=== PATIENT | female | born 1970 | race African-American/Black ===

== ENCOUNTER 2017-12-11 12:06 | Emergency (ER) | payer OTHER, SELFPAY ==
[2017-12-11 12:34] LABS: Bilirubin Negative (Negative); Blood, Urine Trace (Negative); Clarity CLOUDY (Clear); Glucose, Urine (Dipstick) Negative (Negative); Leukocyte Large (Negative); Nitrite Negative (Negative); Protein, Urine (Dipstick) Negative (Neg-Trace); Specific Gravity, Urine 1.008 (1.002-1.036); pH, Urine 7.5 (5.0-9.0)
[2017-12-11 12:39] LABS: Pregnancy Test - Urine (BHCG) Negative (Negative); Pregu Control Background? CLEAR/WHITE (CLR/WHITE); Pregu Control Bar Appear? YES (CONTROL BAR); Specific Gravity 1.008 (1.002-1.036)
[2017-12-11 12:40] LABS: Bacteria/HPF Rare-Few HPF (None Seen); Hyaline Casts/LPF 0-3 HYALINE CAST LPF (0-3 Hyaline); Pathc Cast-AUWi Flag 0.14 (0-2.49); RBC/HPF 0-3 HPF (0-3); WBC/HPF 21-50 HPF (0-3)
[2017-12-12 22:51] LABS: Chlamydia by PCR Not Detected (NotDetected); GC by PCR Not Detected (NotDetected)
== END 2017-12-11 13:30 | disposition home or self-care (01) ==
LOC: ERS 12:06
DX: N89.8 Other specified noninflammatory disorders of vagina (principal); F17.210 Nicotine dependence, cigarettes, uncomplicated
CPT/HCPCS: 81003; 81015; 81025; 87086; 87480; 87491; 87510; 87591; 87660; 99283

== ENCOUNTER 2017-12-13 04:26 | Emergency (ER) | payer SELFPAY ==
[2017-12-13] MEDS ORDERED: Ketorolac Tromethamine 60 MG/2 ML VIAL ONE (06:01)
[2017-12-13] MEDS ORDERED: Fluconazole 100 MG TAB PO SCH (06:15)
== END 2017-12-13 06:28 | disposition home or self-care (01) ==
LOC: ERS 04:26
DX: N76.0 Acute vaginitis (principal); F17.210 Nicotine dependence, cigarettes, uncomplicated
CPT/HCPCS: 96372; J1885

== ENCOUNTER 2018-09-12 18:15 | Emergency (ER) | payer SELFPAY ==
--- NOTE | 2018-09-12 19:39 | RAD ---
CHEST TWO VIEW: 09/12/18 HISTORY: Cough. COMPARISON: Chest radiograph 12/08/14. FINDINGS: The lungs are clear. No pneumothorax or effusion. The cardiac silhouette and mediastinal contours are within normal limits. No acute osseous abnormality. IMPRESSION: No acute intrathoracic abnormality. POS: [id number]
[2018-09-12] MEDS ORDERED: Ondansetron ODT 4 MG TAB ONE (19:55)
[2018-09-12 20:26] LABS: Bilirubin Negative (Negative); Blood, Urine Large (Negative); Clarity CLEAR (Clear); Glucose, Urine (Dipstick) Negative (Negative); Leukocyte Negative (Negative); Nitrite Negative (Negative); Protein, Urine (Dipstick) Negative (Neg-Trace); Specific Gravity, Urine 1.005 (1.002-1.036)
[2018-09-12 20:28] LABS: Bacteria/HPF Rare-Few HPF (None Seen); Hyaline Casts/LPF 0-3 HYALINE CAST LPF (0-3 Hyaline); Pathc Cast-AUWi Flag 0.29 (0-2.49); RBC/HPF 0-3 HPF (0-3); WBC/HPF 0-3 HPF (0-3)
== END 2018-09-12 20:55 | disposition home or self-care (01) ==
LOC: ERS 18:15
DX: J20.9 Acute bronchitis, unspecified (principal); F17.210 Nicotine dependence, cigarettes, uncomplicated
CPT/HCPCS: 71046; 81003; 81015; Q0162

== ENCOUNTER 2020-10-01 05:34 | Emergency (ER) | payer SELFPAY ==
[2020-10-01 17:53] LABS: SARS-CoV-2 PCR by NAA DETECTED (NotDetected)
== END 2020-10-01 06:10 | disposition home or self-care (01) ==
LOC: ERS 05:34
DX: U07.1 COVID-19 (principal); F17.210 Nicotine dependence, cigarettes, uncomplicated
CPT/HCPCS: 87635; 99283; U0003; U0005

== ENCOUNTER 2023-05-30 17:03 | Emergency (ER) | payer BC, SELFPAY ==
[2023-05-30] MEDS ORDERED: Ibuprofen 800 MG TAB ONE (18:13)
[2023-05-30 18:33] LABS: SARS-CoV-2 NAA Rapid Test Not Detected (NotDetected)
== END 2023-05-30 19:08 | disposition home or self-care (01) ==
LOC: ERS 17:03
DX: J10.1 Influenza due to other identified influenza virus with other respiratory manifestations (principal); F17.210 Nicotine dependence, cigarettes, uncomplicated; Z20.822 Contact with and (suspected) exposure to COVID-19
CPT/HCPCS: 71046

== ENCOUNTER 2024-06-13 18:57 | Emergency (ER) | payer BC, OTHER ==
[2024-06-13 20:37] LABS: ALT (SGPT) 11 U/L (8-55); AST (SGOT) 30 U/L (5-34); Albumin 3.9 g/dL (3.5-5.0); Alkaline Phosphatase 65 U/L (40-110); Anion Gap 18 mmol/L (10-20); BUN (Urea Nitrogen) 4 mg/dL (9.8-20.1); Bilirubin, Total 0.7 mg/dL (0.2-1.2); Calc. Creatinine Clearance 0 mL/min (70-130); Calcium 8.8 mg/dL (7.8-10.44); Carbon Dioxide 17 mmol/L (22-29); Chloride 98 mmol/L (98-107); Estimated GFR 91; Globulin 4.1 g/dL (2.4-3.5); Glucose 136 mg/dL (70-105); Potassium 2.9 mmol/L (3.5-5.1); Sodium 130 mmol/L (136-145)
[2024-06-13 20:40] LABS: Troponin I 0.026 ng/mL (< 0.028)
[2024-06-13 20:41] LABS: #Basophils 0.08 10x3/uL (0.0-0.2); #Eosinophils Less than 0.03 10x3/uL (0.0-0.7); %Basophils 0.6 % (0.0-1.0); %Eosinophils 0.1 % (0.0-10.0); %Lymphocytes 16.8 % (21.0-51.0); %Monocytes 6.5 % (0.0-10.0); %Neutrophils 75.4 % (42.0-75.0); Hematocrit 24.4 % (36.0-47.0); Hemoglobin 6.5 g/dL (12.0-16.0); Mean Corpuscular HGB CONC 26.6 g/dL (32.0-36.0); Mean Corpuscular Hemoglobin 18.3 pg (27.0-31.0); Mean Corpuscular Volume 68.5 fL (78.0-98.0); Platelet Count 186 10x3/uL (130-400); RBC Distribution Width 30.4 % (11.5-14.5); Red Blood Cell (RBC) Count 3.56 mill/uL (4.20-5.40)
[2024-06-13 21:16] LABS: Anisocytosis SLIGHT = 6-15 cells HPF (0-5); Hypochromia SLIGHT = 6-15 cells HPF (0-5); Microcytosis MODERATE=15-30 cells HPF (0-5); Platelet Adequacy Comment Platelets Normal; Poikilocytosis SLIGHT = 6-15 cells HPF (0-5); Polychromasia MODERATE = 3-4 cells HPF (0-2); Target Cells SLIGHT = 2-5 cells HPF (0-1); Tear Drops SLIGHT = 2-5 cells HPF (0-1)
[2024-06-13 21:24] LABS: INR-International Normal Ratio 1.5; Prothrombin Time 18.2 sec (12.0-14.7)
[2024-06-13 21:29] LABS: Magnesium 1.4 mg/dL (1.6-2.6)
[2024-06-13 21:30] LABS: BHCG - Serum Negative (NEGATIVE); Pregs Control Background? CLEAR/WHITE (CLR/WHITE); Pregs Control Bar Appear? YES (CONTROL BAR)
[2024-06-13] MEDS ORDERED: Potassium Chloride 20 MEQ TAB ONE (21:30)
[2024-06-13] MEDS ORDERED: Dexamethasone 10 MG/ML VIAL ONE (21:30)
[2024-06-13] MEDS ORDERED: Ondansetron PF 4 MG/2 ML Vial ONE (21:30)
[2024-06-14] MEDS ORDERED: Magnesium 2 GM/50 ML BAG (IN WATER) ONE (00:12)
[2024-06-14] MEDS ORDERED: Potassium Chloride 20 MEQ (100 mL) BAG ONE (00:13)
[2024-06-14 00:30] LABS: Bacteria/HPF 2+ HPF (None Seen); Bilirubin Negative (Negative); Blood, Urine 3+ (Negative); CAUTI Indications for Culture Fever or rigors; Clarity Turbid (Clear); Glucose, Urine (Dipstick) Normal (Negative); Ketone, Urine Negative (Negative); Leukocyte 75 Leu/uL (Negative); Nitrite Negative (Negative); Protein, Urine (Dipstick) 20 mg/dL (Neg-Trace); RBC/HPF Greater than 50 HPF (0-3); Specific Gravity, Urine 1.002 (1.002-1.036)
[2024-06-14 00:32] LABS: Urine Culture Reflex No No
== END 2024-06-14 03:55 | disposition home or self-care (01) ==
LOC: ERS 18:57
DX: D50.9 Iron deficiency anemia, unspecified (principal); N39.0 Urinary tract infection, site not specified; B34.9 Viral infection, unspecified; F17.210 Nicotine dependence, cigarettes, uncomplicated; Z55.6 Problems related to health literacy; Z75.3 Unavailability and inaccessibility of health-care facilities
CPT/HCPCS: 36415; 36430; 71045; 80053; 81001; 83605; 83690; 83735; 83880; 84484; 84703; 85025; 85610; 85730; 86850; 86900; 86901; 87040; 87081; 87086; 87428; 87430; 93005; 94760; 96374; 96375; J1100; J2405; J3475; J3480; P9016